=== PATIENT | female | born 1940 | race American Indian/Alaskan Native ===

== ENCOUNTER 2021-05-24 07:27 | Inpatient (IN) | payer MEDICARE, OTHER ==
[2021-05-24] MEDS ORDERED: Ondansetron 4 MG Tab.DIS PO PRN (08:06)
[2021-05-24] MEDS ORDERED: LORazepam 2 MG/ML SDV IVPUSH PRN (08:06)
[2021-05-24] MEDS ORDERED: Magnesium Hydroxide 400 MG/5 ML Susp 30 ML Cup PO PRN (08:06)
[2021-05-24] MEDS ORDERED: Ibuprofen 600 MG Tab PO PRN (08:06)
[2021-05-24] MEDS ORDERED: Ondansetron 4 MG/2 ML SDV IV PRN (08:06)
[2021-05-24] MEDS ORDERED: Norepinephrine 4 MG in Dextrose 5% in Water 246 ML IV SCH ×2 (08:15)
--- NOTE | 2021-05-24 08:18 | PCM.HP.2 ---
H&P History of Present Illness - General Date of Service: 05/24/21 Admit Problem/Dx: Admission Diagnosis/Problem Admission Diagnosis/Problem Pyelonephritis Source of Information: Patient, Provider History Limitations: Reports: Other (hard of hearing ) - History of Present Illness Initial Comments - Free Text/Narative: CC: I didn't feel so good HPI: Alexandrea initially presented to the [place] emergency room by ambulance with progressive weakness, lethargy and nausea. Symptoms started about 3 days ago and have been slowly progressive. Appetite and oral intake have been poor especially the past 24 hours. She has had nausea but no vomiting. She does not currently report any abdominal pain but did report abdominal pain to the emergency room physician in [place]. She described a right upper quadrant pain to him but when I asked her about pain she says no. She has not noticed a change in bowel or bladder habits other than possibly some urgency to go. She has not had any dysuria. She has not noticed any blood in her urine. She thinks maybe she has had subjective fevers and chills. She feels a little bit short of breath. No chest pain. No skin rashes or sick contacts. She did have both of her Covid vaccinations but cannot remember when. Work-up in the emergency room and to treat Sulaiman suggested right-sided pyelonephritis with initially sepsis which later progressed to septic shock. She is currently requiring norepinephrine for vasopressor support. She received broad-spectrum antibiotics and cultures were obtained there. She was transf erred here because no beds were available and to treat legs. - Related Data Allergies/Adverse Reactions: Allergies Allergy/AdvReac Type Severity Reaction Status Date / Time No Known Allergies Allergy Verified 05/24/21 07:59 Home Medications: Home Meds Aspirin [Halfprin] 81 mg PO DAILY 05/24/21 [History] Calcium Citrate/Vitamin D3 [Calcium Citrate - Vit D3 Tab] 1 tab PO BID 05/24/21 [History] Ibuprofen 400 mg PO DAILY 05/24/21 [History] Insuln Asp Prot/Insulin Aspart [NovoLOG Mix 70-30] 50 units SQ BIDAC 05/24/21 [History] Losartan [Cozaar] 100 mg PO DAILY 05/24/21 [History] Multivitamin 1 each PO DAILY 05/24/21 [History] Omeprazole 20 mg PO DAILY 05/24/21 [History] Sertraline [Zoloft] 100 mg PO DAILY 05/24/21 [History] Simvastatin 20 mg PO BEDTIME 05/24/21 [History] amLODIPine Besylate [Amlodipine Besylate] 10 mg PO DAILY 05/24/21 [History] hydroCHLOROthiazide [Hydrochlorothiazide] 12.5 mg PO DAILY 05/24/21 [History] metFORMIN [Glucophage] 1,000 mg PO BIDMEALS 05/24/21 [History] Past Medical History Cardiovascular History: Reports: High Cholesterol, Hypertension Gastrointestinal History: Reports: Gastritis Genitourinary History: Reports: Pyelonephritis, Renal Calculus [employer]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: Psychiatric History: Reports: Anxiety, Depression Endocrine/Metabolic History: Reports: Diabetes, Type II - Infectious Disease History Infectious Disease History: Reports: Chicken Pox - Past Surgical History HEENT Surgical History: Reports: Cataract Surgery Female Surgical History: Reports: Hysterectomy Other Neurological Surgeries/Procedures: bells palsy Social & Family History - Family History Endocrine/Metabolic: Denies: Diabetes, type II - Tobacco Use Tobacco Use Status *Q: Never Tobacco User - Alcohol Use Alcohol Use History: No - Recreational Drug Use Recreational Drug Use: No H&P Review of Systems - Review of Systems: Review Of Systems: See Below Free Text/Narrative: A complete 12 point review of systems was obtained. Pertinent positives and negatives are noted in the history of present illness. All other systems were reviewed and were negative except as noted. Exam - Exam Exam: See Below - Vital Signs Vital Signs: Last Vital Signs Temp 37.6 C 05/24/21 08:00 Pulse 102 H 05/24/21 08:00 Resp 23 H 05/24/21 08:00 BP 105/48 L 05/24/21 08:00 Pulse Ox 98 05/24/21 08:00 Weight: 73 kg - Exam Quality Assessment: Supplemental Oxygen General: Alert, Cooperative. No: Mild Distress HEENT: Conjunctiva Clear. No: Mucosa Moist & [place] (dry), Scleral Icterus Neck: Supple, Trachea Midline. No: Lymphadenopathy Lungs: Normal Respiratory Effort, Crackles (Few both bases) Cardiovascular: Regular Rate, Regular Rhythm. No: Systolic Murmur GI/Abdominal Exam: Normal Bowel Sounds, Soft, Non-Tender, Distended Extremities: No Pedal Edema. No: Joint Swelling, Increased Warmth Skin: Warm, Dry. No: Rash, Ecchymosis Neuro Extensive - Mental Status: Alert, Nl Response to Commands Neuro Extensive - Motor, Sensory, Reflexes: No: Dysarthria, Abnormal Motor, Tremor Psychiatric: Alert, Normal Affect - Patient Data Lab Results Last 24 hrs: White blood cell count 22, hemoglobin 8.4 with an MCV of 71 potassium 4.4, creatinine 1.7 with a GFR of 29 CRP was 20.5 procalcitonin elevated at 3.8 Lactic acid 2 Urinalysis strongly suggestive of infection with many bacteria, large leukocyte esterase and more than 100 white blood cells per high-power field. Covid testing was negative Imaging Impressions Last 24 hrs: Head CT-radiology report was unremarkable Right upper quadrant ultrasound-radiology report unremarkable CT of the abdomen and pelvis-radiology report noted mild right-sided hydronephrosis and a possible 2 mm stone in the ureter as well as evidence for pyelonephritis around the right kidney with stranding. No other acute findings. #1 Interpretation EKG Date: 05/23/21 Rhythm: NSR Rate (Beats/Min): 94 [place]: Normal P-Wave: Present QRS: Normal ST-T: Normal QT: Normal LA/PQ Interval: Normal Comparison: NA - No Prior EKG EKG Interpretation Comments: This EKG image was personally reviewed at the time of admission Sepsis Event Note - Evaluation Current Stage of Sepsis: Septic Shock Possible Source of Sepsis: Genitourinary - Focused Exam Sepsis Event Note Statement: Focused Sepsis Exam Completed Vital Signs: Vital Signs Temp Pulse Resp BP Pulse Ox 05/24/21 08:00 37.6 C 102 H 23 H 105/48 L 98 05/24/21 07:42 38.2 C H 104 H 22 H 101/44 L 96 Respiratory Effort Without Exertion: Other (see below) (Normal) Heart Sounds: Other (see below) (normal) Capillary Refill, Detail: Less than/Equal to (</=) 2 Seconds Pulse Description: 2+ Normal Peripheral Pulse Location: Dorsalis Pedis Skin Exam (Focused Sepsis): Normal Turgor Date Exam was Performed: 05/24/21 Time Exam was Performed: 08:00 *Q Meaningful Use (ADM) - VTE Risk Assess *Q Each Risk Factor Represents 1 Point: Obesity ( BMI > 25 kg/m2), Sepsis Total Score 1 Point Risk Factors: 2 Each Risk Factor Represents 2 Points: None Total Score 2 Point Risk Factors: 0 Each Risk Factor Represents 3 Points: Age 75 Years or Greater Total Score 3 Point Risk Factors: 3 Each Risk Factor Represents 5 Points: None Total Score 5 Point Risk Factors: 0 Venous Thromboembolism Risk Factor Score *Q: 5 - Problem List (1) Pyelonephritis of right kidney SNOMED Code(s): 22043660 ICD Code: N12 - TUBULO-INTERSTITIAL NEPHRITIS, NOT SPCF ACUTE OR CHRONIC Status: Acute Current Visit: Yes (2) Septic shock SNOMED Code(s): 72016820 ICD Code: A41.9 - SEPSIS, UNSPECIFIED ORGANISM; R65.21 - SEVERE SEPSIS WITH SEPTIC SHOCK Status: Acute Current Visit: Yes (3) Acute kidney injury SNOMED Code(s): 71068286, 58853293 ICD Code: N17.9 - ACUTE KIDNEY FAILURE, UNSPECIFIED Status: Acute Current Visit: Yes (4) Diabetes mellitus type 2 in obese SNOMED Code(s): 22083021 ICD Code: E11.69 - TYPE 2 DIABETES MELLITUS WITH OTHER SPECIFIED COMPLI CATION; E66.9 - OBESITY, UNSPECIFIED Status: Chronic Current Visit: Yes (5) Essential hypertension SNOMED Code(s): 64377199 ICD Code: I10 - ESSENTIAL (PRIMARY) HYPERTENSION Status: Chronic Current Visit: Yes Problem List Initiated/Reviewed/Updated: Yes Orders Last 24hrs: Active Orders 24 hr Category Date Time Status Patient Status [ADT] Routine ADT 05/24/21 08:06 Ordered Antiembolic Devices [RC] .Routine Care 05/24/21 08:06 Ordered Blood Glucose Check, Bedside [RC] WITHMEALSANDBED Care 05/24/21 08:06 Ordered Cardiac Monitoring [RC] CONTINUOUS Care 05/24/21 08:07 Ordered Communication Order [RC] PRN Care 05/24/21 08:06 Ordered Communication Order [RC] PRN Care 05/24/21 08:06 Ordered Diabetes Education [RC] Click to Edit Care 05/24/21 08:06 Ordered Intake and Output [RC] QSHIFT Care 05/24/21 08:06 Ordered Notify Provider Vital Signs [RC] ASDIRECTED Care 05/24/21 08:06 Ordered Notify Provider [RC] PRN Care 05/24/21 08:09 Ordered Oxygen Therapy [RC] PRN Care 05/24/21 08:06 Ordered Up With Assistance [RC] ASDIRECTED Care 05/24/21 08:06 Ordered VTE/DVT Education [RC] Per Unit Routine Care 05/24/21 08:06 Ordered Vital Signs [RC] Q1HR Care 05/24/21 08:06 Ordered Consistent Carbohydrate Diet [DIET] Diet 05/24/21 Breakfast Ordered BASIC METABOLIC PANEL,BMP [CHEM] AM Lab 05/25/21 05:11 Ordered CBC W/O DIFF,HEMOGRAM [HEME] AM Lab 05/25/21 05:11 Ordered Acetaminophen [TylenoL] Med 05/24/21 08:06 Ordered 650 mg PO Q4H PRN Aspirin [Halfprin] Med 05/24/21 09:00 Ordered 81 mg PO DAILY Docusate Sodium/Sennosides [Senna Plus] Med 05/24/21 08:06 Ordered 1 tab PO BID PRN Ibuprofen [Motrin] Med 05/24/21 08:06 Ordered 600 mg PO Q8H PRN Insulin Lispro [HumaLOG] Med 05/24/21 11:00 Ordered See Protocol SUBCUT QIDACANDBED Insuln Asp Prot/Insulin Aspart [NovoLOG Mix 70-30] Med 05/24/21 08:30 Ordered 25 units SQ BIDAC LORazepam [Ativan] Med 05/24/21 08:06 Ordered 0.5 mg IVPUSH Q4H PRN Lactobacillus Rhamnosus GG [Culturelle] Med 05/24/21 09:00 Ordered 1 cap PO BID Levofloxacin/Dextrose 5%-Water [Levaquin in D5W 500 MG/ Med 05/25/21 23:00 Ordered 100 ML] 500 mg Premix Bag 1 bag IV Q48H Magnesium Hydroxide [Milk of Magnesia] Med 05/24/21 08:06 Ordered 30 ml PO Q12H PRN Melatonin Med 05/24/21 21:00 Ordered 9 mg PO BEDTIME Norepinephrine 4 MG in D5W @ 2 MCG/MIN(250ml) Med 05/24/21 08:15 Ordered Norepinephrine [Levophed] 4 mg Dextrose 5% in Water 246 ml IV TITRATE Ondansetron [Zofran ODT] Med 05/24/21 08:06 Ordered 4 mg PO Q6H PRN Ondansetron [Zofran] Med 05/24/21 08:06 Ordered 4 mg IV Q6H PRN Pantoprazole [ProTONIX] Med 05/25/21 07:30 Ordered 40 mg PO ACBREAKFAST Sertraline [Zoloft] Med 05/24/21 09:00 Ordered 100 mg PO DAILY Simvastatin [Simvastatin] Med 05/24/21 21:00 Ordered 20 mg PO BEDTIME Sodium Chloride 0.9% [Normal Saline] 1,000 ml Med 05/24/21 08:15 Ordered IV ASDIRECTED cefTAZidime Pentahydrate [Fortaz] 1 gm Med 05/24/21 08:15 Ordered Sodium Chloride 0.9% [Normal Saline] 50 ml IV Q12H Sequential Compression Device [OM.PC] Routine Oth 05/24/21 08:06 Ordered Resuscitation Status Routine Resus Stat 05/24/21 08:06 Ordered Assessment/Plan Comment:: ASSESSMENT AND PLAN - Right-sided pyelonephritis-complicated by septic shock. CT scan suggested possible small stone in the right ureter with mild hydronephrosis though this was not definite. She is requiring vasopressor support. She did develop mild hypoxia with aggressive IV fluid supplementation but respiratory status currently stable. Cultures were obtained and she did receive broad-spectrum antibiotics at the outside hospital. -Antibiotic coverage with ceftazidime and levofloxacin -Follow-up cultures -Continue norepinephrine, wean as able -Gentle IV fluids, patient may need a dose of furosemide later in the day but fluids are necessary with the urinary infection and possible kidney stone -cardiac monitoring Acute kidney injury-creatinine 1.7 with a baseline of around 1. Likely related to the sepsis and should improve with IV fluids. -Fluids as above with repeat labs in the morning Type 2 diabetes mellitus, [id number] recently has been poor so we are planning to undergo's insulin until we see how she does with food. -NovoLog 70/30 25 units twice daily with meals, Increase as indicated if sugars rise -Sliding scale insulin Essential hypertension-currently requiring vasopressor support so antihypertensive medications will be held. Maintenance issues - -DVT prophylaxis-SCDs -GI prophylaxis-PPI -Nutrition-consistent carbohydrate -Venegas catheter-placed for strict intake and output monitoring in a critical patient CODE STATUS -full code Admission justification -this patient will be admitted for inpatient services and is medically appropriate meeting medical necessity for inpatient admission as outlined in my documentation. I reasonably expect the patient will require inpatient services that span a period time over 2 midnights. I reasonably expect this patient to be discharged or transferred within 96 hours after admission to the [facility]. Disposition -I anticipate discharge home after the hospital stay Primary care physician - Tamela Maynard M.D. - Mortality Measure Prognosis:: Good
[2021-05-24] MEDS: Sodium Chloride 0.9% 1,000 ML IV SCH ×2 (08:22→18:11)
[2021-05-24] MEDS: Insulin Lispro Protamine/Lispro 75-25 100 Units/ML 10 ML Vial SUBCUT SCH ×2 (08:37→17:31)
[2021-05-24] MEDS: Sertraline 50 MG Tab PO SCH (09:09)
[2021-05-24] MEDS: Lactobacillus Rhamnosus GG (Probiotic) Cap PO SCH ×2 (09:09→21:49)
[2021-05-24] MEDS: Pantoprazole 40 MG Tab.CR PO SCH (09:09)
[2021-05-24] MEDS: Aspirin 81 MG Tab.EC PO SCH (09:09)
[2021-05-24] MEDS: Insulin Lispro 100 Unit/ML 3 ML KwikPen SUBCUT SCH ×3 (11:20→21:47)
[2021-05-24] MEDS: Acetaminophen 325 MG Tab PO PRN (13:30)
[2021-05-24] MEDS: atorvaSTATin 10 MG Tab PO SCH (21:49)
[2021-05-24] MEDS: Melatonin 3 MG Tab PO SCH (21:49)
[2021-05-25] MEDS: Acetaminophen 325 MG Tab PO PRN ×4 (00:24→20:56)
[2021-05-25] MEDS: Insulin Lispro 100 Unit/ML 3 ML KwikPen SUBCUT SCH ×4 (07:53→20:59)
[2021-05-25] MEDS: Pantoprazole 40 MG Tab.CR PO SCH (07:53)
[2021-05-25] MEDS: Insulin Lispro Protamine/Lispro 75-25 100 Units/ML 10 ML Vial SUBCUT SCH ×3 (07:55→16:41)
[2021-05-25] MEDS ORDERED: Furosemide 40 MG/4 ML VIAL IVPUSH ONE (08:00)
[2021-05-25] MEDS: Aspirin 81 MG Tab.EC PO SCH (09:21)
[2021-05-25] MEDS: Lactobacillus Rhamnosus GG (Probiotic) Cap PO SCH ×2 (09:21→20:51)
[2021-05-25] MEDS: Sertraline 50 MG Tab PO SCH (09:21)
--- NOTE | 2021-05-25 11:33 | PCM.PN ---
- General Info Date of Service: 05/25/21 Subjective Update: There were no acute events overnight. Patient was weaned off of her norepinephrine infusion fairly quickly yesterday. Blood pressures have been good since that time. Blood sugars have been fairly well controlled though the sugar this morning was on the lower side of normal. She is feeling better with less shortness of breath and more strength and more energy. She does continue to require supplemental oxygen at about 3 L/min. She did receive a dose of Lasix this morning and has had a good response so far. Cultures from [place] are growing E. coli with final identification and sensitivities pending. Functional Status: Reports: Pain Controlled, Tolerating Diet - Review of Systems General: Reports: Fever, Weakness Pulmonary: Reports: Shortness of Breath (mild) Gastrointestinal: Denies: Abdominal Pain - Patient Data Vitals - Most Recent: Last Vital Signs Temp 37.3 C 05/25/21 11:22 Pulse 92 05/25/21 11:22 Resp 16 05/25/21 11:22 BP 123/44 L 05/25/21 11:22 Pulse Ox 94 L 05/25/21 11:22 Weight - Most Recent: 73 kg I&O - Last 24 Hours: Intake & Output 05/24/21 05/25/21 05/25/21 22:59 06:59 14:59 Intake Total 262 1285 Output Total 1050 650 550 Balance -788 635 -550 Lab Results Last 24 Hours: Laboratory Results - last 24 hr 05/24/21 05/24/21 05/25/21 Range/Units 16:51 21:00 05:54 WBC 15.0 H (4.5-11.0) K/uL RBC 3.57 (3.30-5.50) M/uL Hgb 7.5 L (12.0-15.0) g/dL Hct 25.0 L (36.0-48.0) % MCV 70 L (80-98) fL MCH 21 L (27-31) pg MCHC 30 L (32-36) % Plt Count 256 (150-400) K/uL Sodium (140-148) mmol/L Potassium (3.6-5.2) mmol/L Chloride (100-108) mmol/L Carbon Dioxide (21-32) mmol/L Anion Gap (5.0-14.0) mmol/L BUN (7-18) mg/dL Creatinine (0.6-1.0) mg/dL Est Cr Clr Drug Dosing mL/min Estimated GFR (MDRD) (>60) Glucose (74-106) mg/dL POC Glucose 197 H 93 (74-106) mg/dL Calcium (8.5-10.1) mg/dL 05/25/21 05/25/21 05/25/21 Range/Units 05:54 07:29 11:26 WBC (4.5-11.0) K/uL RBC (3.30-5.50) M/uL Hgb (12.0-15.0) g/dL Hct (36.0-48.0) % MCV (80-98) fL MCH (27-31) pg MCHC (32-36) % Plt Count (150-400) K/uL Sodium 135 L (140-148) mmol/L Potassium 3.8 (3.6-5.2) mmol/L Chloride 102 (100-108) mmol/L Carbon Dioxide 22 (21-32) mmol/L Anion Gap 14.8 H (5.0-14.0) mmol/L BUN 34 H (7-18) mg/dL Creatinine 1.6 H (0.6-1.0) mg/dL Est Cr Clr Drug Dosing 20.48 mL/min Estimated GFR (MDRD) 31 L (>60) Glucose 89 (74-106) mg/dL POC Glucose 79 140 H (74-106) mg/dL Calcium 8.2 L (8.5-10.1) mg/dL Med Orders - Current: Current Medications Acetaminophen (Acetaminophen 325 Mg Tab) 650 mg PO Q4H PRN PRN Reason: Pain (Mild 1-3)/fever Last Admin: 05/25/21 09:24 Dose: 650 mg Documented by: Aspirin (Aspirin 81 Mg Tab.Ec) 81 mg PO DAILY [facility] Last Admin: 05/25/21 09:21 Dose: 81 mg Documented by: Atorvastatin Calcium (Atorvastatin 10 Mg Tab) 10 mg PO BEDTIME [facility] Last Admin: 05/24/21 21:49 Dose: 10 mg Documented by: Ceftazidime 1 gm/ Sodium (Chloride) 50 mls @ 100 mls/hr IV Q12H [facility] Last Admin: 05/25/21 09:18 Dose: 100 mls/hr Documented by: Ibuprofen (Ibuprofen 600 Mg Tab) 600 mg PO Q8H PRN PRN Reason: Fever Insulin Human Lispro (Insulin Lispro 100 Unit/Ml 3 Ml Kwikpen) 0 unit SUBCUT QIDACANDBED [facility]; Protocol Last Admin: 05/25/21 07:53 Dose: Not Given Documented by: Insulin Lispro Protam/Lispro Human (Insulin Lispro Protamine/Lispro 75-25 100 Units/Ml 10 Ml Vial) 15 unit SUBCUT BIDAC [facility] Last Admin: 05/25/21 11:01 Dose: 15 unit Documented by: Lactobacillus Rhamnosus (Lactobacillus Rhamnosus Gg (Probiotic) Cap) 1 cap PO BID [facility] Last Admin: 05/25/21 09:21 Dose: 1 cap Documented by: Lorazepam (Lorazepam 2 Mg/Ml Sdv) 0.5 mg IVPUSH Q4H PRN PRN Reason: Nausea/Vomiting Magnesium Hydroxide (Magnesium Hydroxide 400 Mg/5 Ml Susp 30 Ml Cup) 30 ml PO Q12H PRN PRN Reason: Constipation Melatonin (Melatonin 3 Mg Tab) 9 mg PO BEDTIME [facility] Last Admin: 05/24/21 21:49 Dose: 9 mg Documented by: Ondansetron HCl (Ondansetron 4 Mg Tab.Dis) 4 mg PO Q6H PRN PRN Reason: Nausea able to take PO Last Admin: 05/25/21 00:57 Dose: 4 mg Documented by: Ondansetron HCl (Ondansetron 4 Mg/2 Ml Sdv) 4 mg IV Q6H PRN PRN Reason: Nausea/Vomiting Pantoprazole Sodium (Pantoprazole 40 Mg Tab.Cr) 40 mg PO ACBREAKFAST [facility] Last Admin: 05/25/21 07:53 Dose: 40 mg Documented by: Senna/Docusate Sodium (Docusate Sodium/Sennosides 50-8.6 Mg Tab) 1 tab PO BID PRN PRN Reason: Constipation Sertraline HCl (Sertraline 50 Mg Tab) 100 mg PO DAILY [facility] Last Admin: 05/25/21 09:21 Dose: 100 mg Documented by: Discontinued Medications Furosemide (Furosemide 40 Mg/4 Ml Vial) 20 mg IVPUSH ONETIME ONE Stop: 05/25/21 08:01 Last Admin: 05/25/21 07:52 Dose: 20 mg Documented by: Sodium Chloride (Normal Saline) 1,000 mls @ 100 mls/hr IV ASDIRECTED [facility] Last Admin: 05/24/21 18:11 Dose: 100 mls/hr Documented by: Levofloxacin/Dextrose 500 mg/ (Premix) 100 mls @ 100 mls/hr IV Q48H [facility] Norepinephrine Bitartrate 4 mg (/ Dextrose/Water) 250 mls @ 7.5 mls/hr IV TITRATE [facility]; Protocol Insulin Lispro Protam/Lispro Human (Insulin Lispro Protamine/Lispro 75-25 100 Units/Ml 10 Ml Vial) 25 unit SUBCUT BIDAC [facility] Last Admin: 05/25/21 07:55 Dose: Not Given Documented by: - Exam Quality Assessment: Supplemental Oxygen General: Alert, Oriented, Cooperative, No Acute Distress Lungs: Normal Respiratory Effort, Crackles (both bases R>L) Cardiovascular: Regular Rate, Regular Rhythm GI/Abdominal Exam: Soft, No Distention Extremities: No Pedal Edema. No: Increased Warmth Skin: Warm, Dry Psy/Mental Status: Alert, Normal Affect - Patient Data Lab Results Last 24 hrs: Laboratory Results - last 24 hr 05/24/21 05/24/21 05/25/21 Range/Units 16:51 21:00 05:54 WBC 15.0 H (4.5-11.0) K/uL RBC 3.57 (3.30-5.50) M/uL Hgb 7.5 L (12.0-15.0) g/dL Hct 25.0 L (36.0-48.0) % MCV 70 L (80-98) fL MCH 21 L (27-31) pg MCHC 30 L (32-36) % Plt Count 256 (150-400) K/uL Sodium (140-148) mmol/L Potassium (3.6-5.2) mmol/L Chloride (100-108) mmol/L Carbon Dioxide (21-32) mmol/L Anion Gap (5.0-14.0) mmol/L BUN (7-18) mg/dL Creatinine (0.6-1.0) mg/dL Est Cr Clr Drug Dosing mL/min Estimated GFR (MDRD) (>60) Glucose (74-106) mg/dL POC Glucose 197 H 93 (74-106) mg/dL Calcium (8.5-10.1) mg/dL 05/25/21 05/25/21 05/25/21 Range/Units 05:54 07:29 11:26 WBC (4.5-11.0) K/uL RBC (3.30-5.50) M/uL Hgb (12.0-15.0) g/dL Hct (36.0-48.0) % MCV (80-98) fL MCH (27-31) pg MCHC (32-36) % Plt Count (150-400) K/uL Sodium 135 L (140-148) mmol/L Potassium 3.8 (3.6-5.2) mmol/L Chloride 102 (100-108) mmol/L Carbon Dioxide 22 (21-32) mmol/L Anion Gap 14.8 H (5.0-14.0) mmol/L BUN 34 H (7-18) mg/dL Creatinine 1.6 H (0.6-1.0) mg/dL Est Cr Clr Drug Dosing 20.48 mL/min Estimated GFR (MDRD) 31 L (>60) Glucose 89 (74-106) mg/dL POC Glucose 79 140 H (74-106) mg/dL Calcium 8.2 L (8.5-10.1) mg/dL Result Diagrams: 05/25/21 05:54 05/25/21 05:54 Sepsis Event Note - Evaluation Sepsis Screening Result: Possible Sepsis Risk - Focused Exam Vital Signs: Vital Signs Temp Temp Pulse Resp BP Pulse Ox Pulse Ox 05/25/21 11:22 37.3 C 92 16 123/44 L 94 L 05/25/21 08:08 36.2 C 86 16 128/46 L 95 05/25/21 08:06 96 05/25/21 04:00 37.3 C 75 16 125/49 L 96 05/25/21 01:34 94 L 05/25/21 00:54 38.2 C H 05/25/21 00:24 38.7 C H 05/25/21 00:14 38.7 C H 106 H 18 126/54 L 90 L - Problem List & Annotations (1) Pyelonephritis of right kidney SNOMED Code(s): 52229349 Code(s): N12 - TUBULO-INTERSTITIAL NEPHRITIS, NOT SPCF ACUTE OR CHRONIC Status: Acute Current Visit: Yes (2) Septic shock SNOMED Code(s): 49035438 Code(s): A41.9 - SEPSIS, UNSPECIFIED ORGANISM; R65.21 - SEVERE SEPSIS WITH SEPTIC SHOCK Status: Acute Current Visit: Yes (3) Acute kidney injury SNOMED Code(s): 64414087, 96085101 Code(s): N17.9 - ACUTE KIDNEY FAILURE, UNSPECIFIED Status: Acute Current Visit: Yes (4) Diabetes mellitus type 2 in obese SNOMED Code(s): 15099121 Code(s): E11.69 - TYPE 2 DIABETES MELLITUS WITH OTHER SPECIFIED COMPLICATION; E66.9 - OBESITY, UNSPECIFIED Status: Chronic Current Visit: Yes (5) Essential hypertension SNOMED Code(s): 85698329 Code(s): I10 - ESSENTIAL (PRIMARY) HYPERTENSION Status: Chronic Current Visit: Yes - Problem List Review Problem List Initiated/Reviewed/Updated: Yes - My Orders Last 24 Hours: My Active Orders 05/24/21 11:00 Insulin Lispro [HumaLOG] See Protocol SUBCUT QIDACANDBED 05/24/21 14:01 Transfer Patient (Change bed) [ADT] Routine Vital Signs [RC] Q4H 05/24/21 21:00 Melatonin 9 mg PO BEDTIME atorvaSTATin [Lipitor] 10 mg PO BEDTIME 05/25/21 03:18 Convert IV to Saline Lock [OM.PC] Routine 05/25/21 03:41 Urinary Catheter Assessment [RC] Q12HR 05/25/21 09:30 Insulin Lispro Prot/Lispro [HumaLOG Mix 75-25] 15 unit SUBCUT BIDAC 05/25/21 11:30 GLUCOSE POC LAB TO COLLECT JPM [POC] QIDACANDBED 05/25/21 13:00 DC Venegas Catheter [Urinary Catheter Removal] [RC] PER UNIT ROUTINE 05/25/21 16:30 GLUCOSE POC LAB TO COLLECT JPM [POC] QIDACANDBED 05/25/21 21:00 GLUCOSE POC LAB TO COLLECT JPM [POC] QIDACANDBED 05/26/21 05:00 BASIC METABOLIC PANEL,BMP [CHEM] Timed CBC W/O DIFF,HEMOGRAM [HEME] Timed (1) 05/26/21 07:30 GLUCOSE POC LAB TO COLLECT JPM [POC] QIDACANDBED 05/26/21 11:30 GLUCOSE POC LAB TO COLLECT JPM [POC] QIDACANDBED 05/26/21 16:30 GLUCOSE POC LAB TO COLLECT JPM [POC] QIDACANDBED 05/26/21 21:00 GLUCOSE POC LAB TO COLLECT JPM [POC] QIDACANDBED 05/27/21 07:30 GLUCOSE POC LAB TO COLLECT JPM [POC] QIDACANDBED 05/27/21 11:30 GLUCOSE POC LAB TO COLLECT JPM [POC] QIDACANDBED 05/27/21 16:30 GLUCOSE POC LAB TO COLLECT JPM [POC] QIDACANDBED 05/27/21 21:00 GLUCOSE POC LAB TO COLLECT JPM [POC] QIDACANDBED 05/28/21 07:30 GLUCOSE POC LAB TO COLLECT JPM [POC] QIDACANDBED 05/28/21 11:30 GLUCOSE POC LAB TO COLLECT JPM [POC] QIDACANDBED 05/28/21 16:30 GLUCOSE POC LAB TO COLLECT JPM [POC] QIDACANDBED 05/28/21 21:00 GLUCOSE POC LAB TO COLLECT JPM [POC] QIDACANDBED 05/29/21 07:30 GLUCOSE POC LAB TO COLLECT JPM [POC] QIDACANDBED 05/29/21 11:30 GLUCOSE POC LAB TO COLLECT JPM [POC] QIDACANDBED 05/29/21 16:30 GLUCOSE POC LAB TO COLLECT JPM [POC] QIDACANDBED 05/29/21 21:00 GLUCOSE POC LAB TO COLLECT JPM [POC] QIDACANDBED 05/30/21 07:30 GLUCOSE POC LAB TO COLLECT JPM [POC] QIDACANDBED 05/30/21 11:30 GLUCOSE POC LAB TO COLLECT JPM [POC] QIDACANDBED 05/30/21 16:30 GLUCOSE POC LAB TO COLLECT JPM [POC] QIDACANDBED 05/30/21 21:00 GLUCOSE POC LAB TO COLLECT JPM [POC] QIDACANDBED - Plan Plan:: ASSESSMENT AND PLAN - Right-sided pyelonephritis-complicated by septic shock (resolved). No longer requiring vasopressor support. Cultures growing E. coli with sensitivities pending. Clinically improving but did have a fever last night. -Antibiotic coverage with ceftazidime and levofloxacin -Follow-up cultures -Saline lock IV -Symptomatic management of pain and/or nausea -cardiac monitoring Acute kidney injury-creatinine slightly better since admission. -repeat labs in the morning Type 2 diabetes mellitus, [id number] recently has been poor so we are planning to underdose insulin until we see how she does with food. -NovoLog 70/30 15 units twice daily with meals, Increase as indicated if sugars rise -Sliding scale insulin Essential hypertension-blood pressures in the normal range so we will continue to hold her antihypertensives for now Maintenance issues - -DVT prophylaxis-SCDs -GI prophylaxis-PPI -Nutrition-consistent carbohydrate -Venegas catheter-will be removed today Disposition -I anticipate discharge home after the hospital stay Primary care physician - Tamela Maynard M.D.
[2021-05-25] MEDS: atorvaSTATin 10 MG Tab PO SCH (20:52)
[2021-05-25] MEDS: Melatonin 3 MG Tab PO SCH (20:52)
[2021-05-25] MEDS ORDERED: Levofloxacin/Dextrose 5%-Water 500 MG in Premix Bag 1 BAG IV SCH (23:00)
[2021-05-26] MEDS: Acetaminophen 325 MG Tab PO PRN ×2 (04:53→13:57)
[2021-05-26] MEDS ORDERED: Potassium Chloride 20 MEQ Tab.ER PO ONE (08:30)
[2021-05-26] MEDS: Insulin Lispro Protamine/Lispro 75-25 100 Units/ML 10 ML Vial SUBCUT SCH ×2 (09:28→18:00)
[2021-05-26] MEDS: Pantoprazole 40 MG Tab.CR PO SCH (09:28)
[2021-05-26] MEDS: Lactobacillus Rhamnosus GG (Probiotic) Cap PO SCH ×2 (09:29→21:33)
[2021-05-26] MEDS: Insulin Lispro 100 Unit/ML 3 ML KwikPen SUBCUT SCH ×4 (09:29→21:31)
[2021-05-26] MEDS: Sertraline 50 MG Tab PO SCH (09:30)
[2021-05-26] MEDS: Aspirin 81 MG Tab.EC PO SCH (09:30)
--- NOTE | 2021-05-26 13:25 | PCM.PN ---
- General Info Date of Service: 05/26/21 Subjective Update: There were no acute events overnight. Patient did have a fever to 101.6 this morning. She reports a mild cough with some clear sputum. She reports mild periumbilical abdominal pain but no nausea or vomiting. White count is better today. Blood sugars have been well controlled. Still requiring supplemental oxygen but less so than yesterday. She does desaturate into the 70s without oxygen. Urine and blood cultures from [place] growing pansensitive E. coli. Functional Status: Reports: Pain Controlled, Tolerating Diet - Review of Systems General: Reports: Weakness Pulmonary: Reports: Shortness of Breath, Cough Gastrointestinal: Reports: Abdominal Pain - Patient Data Vitals - Most Recent: Last Vital Signs Temp 36.1 C 05/26/21 10:00 Pulse 80 05/26/21 10:00 Resp 18 05/26/21 10:00 BP 124/52 L 05/26/21 10:00 Pulse Ox 97 05/26/21 13:00 Weight - Most Recent: 73 kg I&O - Last 24 Hours: Intake & Output 05/25/21 05/26/21 05/26/21 22:59 06:59 14:59 Intake Total 550 500 Balance 550 500 Lab Results Last 24 Hours: Laboratory Results - last 24 hr 05/25/21 05/25/21 05/26/21 Range/Units 16:33 20:57 05:55 WBC 11.4 H (4.5-11.0) K/uL RBC 3.73 (3.30-5.50) M/uL Hgb 7.8 L (12.0-15.0) g/dL Hct 26.0 L (36.0-48.0) % MCV 70 L (80-98) fL MCH 21 L (27-31) pg MCHC 30 L (32-36) % Plt Count 244 (150-400) K/uL Sodium (140-148) mmol/L Potassium (3.6-5.2) mmol/L Chloride (100-108) mmol/L Carbon Dioxide (21-32) mmol/L Anion Gap (5.0-14.0) mmol/L BUN (7-18) mg/dL Creatinine (0.6-1.0) mg/dL Est Cr Clr Drug Dosing mL/min Estimated GFR (MDRD) (>60) Glucose (74-106) mg/dL POC Glucose 101 115 H (74-106) mg/dL Calcium (8.5-10.1) mg/dL 05/26/21 05/26/21 05/26/21 Range/Units 05:55 07:27 12:25 WBC (4.5-11.0) K/uL RBC (3.30-5.50) M/uL Hgb (12.0-15.0) g/dL Hct (36.0-48.0) % MCV (80-98) fL MCH (27-31) pg MCHC (32-36) % Plt Count (150-400) K/uL Sodium 134 L (140-148) mmol/L Potassium 3.5 L (3.6-5.2) mmol/L Chloride 99 L (100-108) mmol/L Carbon Dioxide 24 (21-32) mmol/L Anion Gap 14.5 H (5.0-14.0) mmol/L BUN 26 H (7-18) mg/dL Creatinine 1.2 H (0.6-1.0) mg/dL Est Cr Clr Drug Dosing 27.30 mL/min Estimated GFR (MDRD) 43 L (>60) Glucose 169 H (74-106) mg/dL POC Glucose 166 H 205 H (74-106) mg/dL Calcium 8.4 L (8.5-10.1) mg/dL Med Orders - Current: Current Medications Acetaminophen (Acetaminophen 325 Mg Tab) 650 mg PO Q4H PRN PRN Reason: Pain (Mild 1-3)/fever Last Admin: 05/26/21 04:53 Dose: 650 mg Documented by: Aspirin (Aspirin 81 Mg Tab.Ec) 81 mg PO DAILY [facility] Last Admin: 05/26/21 09:30 Dose: 81 mg Documented by: Atorvastatin Calcium (Atorvastatin 10 Mg Tab) 10 mg PO BEDTIME [facility] Last Admin: 05/25/21 20:52 Dose: 10 mg Documented by: Ibuprofen (Ibuprofen 600 Mg Tab) 600 mg PO Q8H PRN PRN Reason: Fever Insulin Human Lispro (Insulin Lispro 100 Unit/Ml 3 Ml Kwikpen) 0 unit SUBCUT QIDACANDBED ON [facility]; Protocol Last Admin: 05/26/21 09:29 Dose: 2 units Documented by: Insulin Lispro Protam/Lispro Human (Insulin Lispro Protamine/Lispro 75-25 100 Units/Ml 10 Ml Vial) 15 unit SUBCUT BIDAC [facility] Last Admin: 05/26/21 09:28 Dose: 15 unit Documented by: Lactobacillus Rhamnosus (Lactobacillus Rhamnosus Gg (Probiotic) Cap) 1 cap PO BID [facility] Last Admin: 05/26/21 09:29 Dose: 1 cap Documented by: Lorazepam (Lorazepam 2 Mg/Ml Sdv) 0.5 mg IVPUSH Q4H PRN PRN Reason: Nausea/Vomiting Magnesium Hydroxide (Magnesium Hydroxide 400 Mg/5 Ml Susp 30 Ml Cup) 30 ml PO Q12H PRN PRN Reason: Constipation Melatonin (Melatonin 3 Mg Tab) 9 mg PO BEDTIME [facility] Last Admin: 05/25/21 20:52 Dose: 9 mg Documented by: Ondansetron HCl (Ondansetron 4 Mg Tab.Dis) 4 mg PO Q6H PRN PRN Reason: Nausea able to take PO Last Admin: 05/25/21 00:57 Dose: 4 mg Documented by: Ondansetron HCl (Ondansetron 4 Mg/2 Ml Sdv) 4 mg IV Q6H PRN PRN Reason: Nausea/Vomiting Pantoprazole Sodium (Pantoprazole 40 Mg Tab.Cr) 40 mg PO ACBREAKFAST [facility] Last Admin: 05/26/21 09:28 Dose: 40 mg Documented by: Senna/Docusate Sodium (Docusate Sodium/Sennosides 50-8.6 Mg Tab) 1 tab PO BID PRN PRN Reason: Constipation Sertraline HCl (Sertraline 50 Mg Tab) 100 mg PO DAILY [facility] Last Admin: 05/26/21 09:30 Dose: 100 mg Documented by: Discontinued Medications Furosemide (Furosemide 40 Mg/4 Ml Vial) 20 mg IVPUSH ONETIME ONE Stop: 05/25/21 08:01 Last Admin: 05/25/21 07:52 Dose: 20 mg Documented by: Sodium Chloride (Normal Saline) 1,000 mls @ 100 mls/hr IV ASDIRECTED ON [facility] OF [facility] Last Admin: 05/24/21 18:11 Dose: 100 mls/hr Documented by: Ceftazidime 1 gm/ Sodium (Chloride) 50 mls @ 100 mls/hr IV Q12H [facility] Last Admin: 05/26/21 09:28 Dose: 100 mls/hr Documented by: Levofloxacin/Dextrose 500 mg/ (Premix) 100 mls @ 100 mls/hr IV Q48H [facility] Norepinephrine Bitartrate 4 mg (/ Dextrose/Water) 250 mls @ 7.5 mls/hr IV TITRATE [facility]; Protocol Insulin Lispro Protam/Lispro Human (Insulin Lispro Protamine/Lispro 75-25 100 Units/Ml 10 Ml Vial) 25 unit SUBCUT BIDAC [facility] Last Admin: 05/25/21 07:55 Dose: Not Given Documented by: Potassium Chloride (Potassium Chloride 20 Meq Tab.Er) 40 meq PO ONETIME ONE Stop: 05/26/21 08:31 Last Admin: 05/26/21 09:33 Dose: 40 meq Documented by: - Exam Quality Assessment: Supplemental Oxygen General: Alert, Oriented, Cooperative, No Acute Distress Neck: JVD Lungs: Normal Respiratory Effort, Crackles (few both bases R>L) Cardiovascular: Regular Rate, Regular Rhythm GI/Abdominal Exam: Soft, No Distention Extremities: No Pedal Edema. No: Increased Warmth Skin: Warm, Dry Psy/Mental Status: Alert, Normal Affect - Patient Data Lab Results Last 24 hrs: Laboratory Results - last 24 hr 05/25/21 05/25/21 05/26/21 Range/Units 16:33 20:57 05:55 WBC 11.4 H (4.5-11.0) K/uL RBC 3.73 (3.30-5.50) M/uL Hgb 7.8 L (12.0-15.0) g/dL Hct 26.0 L (36.0-48.0) % MCV 70 L (80-98) fL MCH 21 L (27-31) pg MCHC 30 L (32-36) % Plt Count 244 (150-400) K/uL Sodium (140-148) mmol/L Potassium (3.6-5.2) mmol/L Chloride (100-108) mmol/L Carbon Dioxide (21-32) mmol/L Anion Gap (5.0-14.0) mmol/L BUN (7-18) mg/dL Creatinine (0.6-1.0) mg/dL Est Cr Clr Drug Dosing mL/min Estimated GFR (MDRD) (>60) Glucose (74-106) mg/dL POC Glucose 101 115 H (74-106) mg/dL Calcium (8.5-10.1) mg/dL 05/26/21 05/26/21 05/26/21 Range/Units 05:55 07:27 12:25 WBC (4.5-11.0) K/uL RBC (3.30-5.50) M/uL Hgb (12.0-15.0) g/dL Hct (36.0-48.0) % MCV (80-98) fL MCH (27-31) pg MCHC (32-36) % Plt Count (150-400) K/uL Sodium 134 L (140-148) mmol/L Potassium 3.5 L (3.6-5.2) mmol/L Chloride 99 L (100-108) mmol/L Carbon Dioxide 24 (21-32) mmol/L Anion Gap 14.5 H (5.0-14.0) mmol/L BUN 26 H (7-18) mg/dL Creatinine 1.2 H (0.6-1.0) mg/dL Est Cr Clr Drug Dosing 27.30 mL/min Estimated GFR (MDRD) 43 L (>60) Glucose 169 H (74-106) mg/dL POC Glucose 166 H 205 H (74-106) mg/dL Calcium 8.4 L (8.5-10.1) mg/dL Result Diagrams: 05/26/21 05:55 05/26/21 05:55 Sepsis Event Note - Evaluation Sepsis Screening Result: Possible Sepsis Risk - Focused Exam Vital Signs: Vital Signs Temp Temp Pulse Resp BP Pulse Ox 05/26/21 13:00 97 05/26/21 10:00 36.1 C 80 18 124/52 L 98 05/26/21 07:30 97 05/26/21 07:00 36.2 C 78 18 148/57 H 98 05/26/21 05:23 101.6 C H 05/26/21 04:53 38.7 C H 05/26/21 04:49 38.7 C H 100 18 131/53 L 93 L - Problem List & Annotations (1) Pyelonephritis of right kidney SNOMED Code(s): 71900323 Code(s): N12 - TUBULO-INTERSTITIAL NEPHRITIS, NOT SPCF ACUTE OR CHRONIC Status: Acute Current Visit: Yes (2) Septic shock SNOMED Code(s): 18272727 Code(s): A41.9 - SEPSIS, UNSPECIFIED ORGANISM; R65.21 - SEVERE SEPSIS WITH SEPTIC SHOCK Status: Acute Current Visit: Yes (3) Acute kidney injury SNOMED Code(s): 43295245, 60316724 Code(s): N17.9 - ACUTE KIDNEY FAILURE, UNSPECIFIED Status: Acute Current Visit: Yes (4) Diabetes mellitus type 2 in obese SNOMED Code(s): 80296864 Code(s): E11.69 - TYPE 2 DIABETES MELLITUS WITH OTHER SPECIFIED COMPLICATION; E66.9 - OBESITY, UNSPECIFIED Status: Chronic Current Visit: Yes (5) Essential hypertension SNOMED Code(s): 71276418 Code(s): I10 - ESSENTIAL (PRIMARY) HYPERTENSION Status: Chronic Current Visit: Yes - Problem List Review Problem List Initiated/Reviewed/Updated: Yes - My Orders Last 24 Hours: My Active Orders 05/26/21 13:22 Furosemide [Lasix] 40 mg IVPUSH NOW ONE 05/26/21 16:30 GLUCOSE POC LAB TO COLLECT JPM [POC] QIDACANDBED 05/26/21 21:00 GLUCOSE POC LAB TO COLLECT JPM [POC] QIDACANDBED Potassium Chloride [Klor-Con M20] 40 meq PO BID cefTRIAXone [Rocephin] 1 gm Sodium Chloride 0.9% [Normal Saline] 50 ml IV Q24H 05/27/21 05:00 BASIC METABOLIC PANEL,BMP [CHEM] Timed CBC W/O DIFF,HEMOGRAM [HEME] Timed (1) 05/27/21 07:30 GLUCOSE POC LAB TO COLLECT JPM [POC] QIDACANDBED 05/27/21 11:30 GLUCOSE POC LAB TO COLLECT JPM [POC] QIDACANDBED 05/27/21 16:30 GLUCOSE POC LAB TO COLLECT JPM [POC] QIDACANDBED 05/27/21 21:00 GLUCOSE POC LAB TO COLLECT JPM [POC] QIDACANDBED 05/28/21 07:30 GLUCOSE POC LAB TO COLLECT JPM [POC] QIDACANDBED 05/28/21 11:30 GLUCOSE POC LAB TO COLLECT JPM [POC] QIDACANDBED 05/28/21 16:30 GLUCOSE POC LAB TO COLLECT JPM [POC] QIDACANDBED 09/11/21 21:00 GLUCOSE POC LAB TO COLLECT JPM [POC] QIDACANDBED 05/29/21 07:30 GLUCOSE POC LAB TO COLLECT JPM [POC] QIDACANDBED 05/29/21 11:30 GLUCOSE POC LAB TO COLLECT JPM [POC] QIDACANDBED 05/29/21 16:30 GLUCOSE POC LAB TO COLLECT JPM [POC] QIDACANDBED 05/29/21 21:00 GLUCOSE POC LAB TO COLLECT JPM [POC] QIDACANDBED 05/30/21 07:30 GLUCOSE POC LAB TO COLLECT JPM [POC] QIDACANDBED 05/30/21 11:30 GLUCOSE POC LAB TO COLLECT JPM [POC] QIDACANDBED 05/30/21 16:30 GLUCOSE POC LAB TO COLLECT JPM [POC] QIDACANDBED 05/30/21 21:00 GLUCOSE POC LAB TO COLLECT JPM [POC] QIDACANDBED - Plan Plan:: ASSESSMENT AND PLAN - Right-sided pyelonephritis-complicated by septic shock (resolved). No longer requiring vasopressor support. Cultures growing pansensitive E. coli. Clinically improving but still having fevers. She has mild hypoxia which could be related to volume resuscitation at presentation. -Antibiotic coverage with ceftriaxone while hospitalized, oral antibiotics after discharge -Dose of IV furosemide -Saline lock IV -Symptomatic management of pain and/or nausea Acute kidney injury-creatinine improving and nearly back to baseline. -repeat labs in the morning Type 2 diabetes mellitus, zvafqot-qxalgflya-telrab well controlled with less than usual dose of insulin. -NovoLog 70/30 15 units twice daily with meals, Increase as indicated if sugars rise -Sliding scale insulin Essential hypertension-blood pressures in the normal range so we will continue to hold her antihypertensives for now Maintenance issues - -DVT prophylaxis-SCDs -GI prophylaxis-PPI -Nutrition-consistent carbohydrate Disposition -I anticipate discharge home after the hospital stay, possibly tomorrow if we can get her off the supplemental oxygen Primary care physician - Tamela Maynard M.D.
[2021-05-26] MEDS ORDERED: Furosemide 40 MG/4 ML VIAL IVPUSH ONE (13:30)
[2021-05-26] MEDS ORDERED: cefTRIAXone 1 GM in Sodium Chloride 0.9% 50 ML IV SCH (21:00)
[2021-05-26] MEDS: atorvaSTATin 10 MG Tab PO SCH (21:34)
[2021-05-26] MEDS: Potassium Chloride 20 MEQ Tab.ER PO SCH (21:34)
[2021-05-26] MEDS: Melatonin 3 MG Tab PO SCH (21:35)
[2021-05-27] MEDS: Insulin Lispro 100 Unit/ML 3 ML KwikPen SUBCUT SCH ×2 (08:35→12:55)
[2021-05-27] MEDS: Sertraline 50 MG Tab PO SCH (08:40)
[2021-05-27] MEDS: Potassium Chloride 20 MEQ Tab.ER PO SCH (08:40)
[2021-05-27] MEDS: Lactobacillus Rhamnosus GG (Probiotic) Cap PO SCH (08:40)
[2021-05-27] MEDS: Pantoprazole 40 MG Tab.CR PO SCH (08:40)
[2021-05-27] MEDS: Aspirin 81 MG Tab.EC PO SCH (08:40)
[2021-05-27] MEDS: Insulin Lispro Protamine/Lispro 75-25 100 Units/ML 10 ML Vial SUBCUT SCH (08:41)
[2021-05-27] MEDS ORDERED: Furosemide 40 MG/4 ML VIAL IVPUSH ONE (09:00)
--- NOTE | 2021-05-27 13:17 | PCM.DCSUM1 ---
Discharge Summary - Hospital Course Brief History: 80-year-old female with history of type 2 diabetes mellitus, essential hypertension who presented with weakness and fever. She was sent to our hospital as a direct admission for management of right-sided pyelonephritis with septic shock and acute kidney injury. Diagnosis: Stroke: No - Discharge Data Discharge Date: 05/27/21 Discharge Disposition: Home, W Home Health Agency 06 Condition: Good - Referral to Home Health Date of Face to Face Encounter: 05/27/21 Reason for Homebound Status: weakness due to acute illness/infection Primary Care Physician: PCP None Skilled Need: Nursing and Physical therapy - Discharge Diagnosis/Problem(s) (1) Pyelonephritis of right kidney SNOMED Code(s): 73517937 ICD Code: N12 - TUBULO-INTERSTITIAL NEPHRITIS, NOT SPCF ACUTE OR CHRONIC Status: Acute Current Visit: Yes (2) Septic shock SNOMED Code(s): 53611665 ICD Code: A41.9 - SEPSIS, UNSPECIFIED ORGANISM; R65.21 - SEVERE SEPSIS WITH SEPTIC SHOCK Status: Acute Current Visit: Yes (3) Acute kidney injury SNOMED Code(s): 72936323, 56252946 ICD Code: N17.9 - ACUTE KIDNEY FAILURE, UNSPECIFIED Status: Acute Current Visit: Yes (4) Diabetes mellitus type 2 in obese SNOMED Code(s): 92835819 ICD Code: E11.69 - TYPE 2 DIABETES MELLITUS WITH OTHER SPECIFIED COMPLICATION; E66.9 - OBESITY, UNSPECIFIED Status: Chronic Current Visit: Yes (5) Essential hypertension SNOMED Code(s): 33772771 ICD Code: I10 - ESSENTIAL (PRIMARY) HYPERTENSION Status: Chronic Current Visit: Yes - Patient Summary/Data Hospital Course: Alexandrea presented initially to an outside hospital with weakness, fever and abdominal pain. Work-up in the outside hospital revealed evidence for right- sided pyelonephritis with sepsis and septic shock even prior to her transfer. She had leukocytosis, evidence for infection on urinalysis as well as a CT scan suggesting pyelonephritis. She developed some hypoxia after volume resuscitation for the sepsis. She required norepinephrine for vasopressor support with persistent hypotension. No beds were available at [facility] so she was transferred here for further management. She was admitted to the intensive care unit. IV antibiotic coverage was with levofloxacin and ceftazidime. She required vasopressor support at the time of presentation but we were able to wean this off over the course of several hours. We did provide some IV fluids along with the persistent hypotension and improvement in her respiratory status from presentation. The next day we saw steady improvement. We are able to stop her IV fluids. She had remained off of the vasopressors. Her cultures from [place] were growing E. coli with final sensitivities pending. We did continue the broad-spectrum antibiotics for an additional day. Next day her cultures returned with pansensitive E. coli from blood and urine. She continued to have fevers as well as needed some supplemental oxygen from a persistent volume excess. We diuresed her for a couple of days and continued to the antibiotics that we did switch to ceftriaxone. We are able to wean her off the supplemental oxygen. She has not had any fevers in more than 24 hours. Strength and appetite are good enough that she feels comfortable going home. She is going to go to her son's house for a few days before returning home with her daughter. She will be on antibiotics for another week to complete 10 days o f therapy for right-sided pyelonephritis with septic shock and gram-negative bacteremia. Also of note the patient had acute kidney injury at presentation with a creatinine of 1.7. Creatinine is down to 0.9 at the time of discharge. Diabetes has been well controlled. - Patient Instructions Diet: Diabetic Diet Activity: As Tolerated Showering/Bathing: May Shower Other/Special Instructions: 1. You were in the hospital for management of right- sided pyelonephritis complicated by septic shock. Your cultures grew out a bacteria called E. coli that was sensitive to all of the antibiotics we tested. Your condition has been improving with IV fluids, antibiotics and additional cares provided in the hospital. I do recommend additional antibiotic therapy after hospital discharge. Please take ciprofloxacin 250 mg twice daily for 7 days. Your first dose outside of the hospital will be due tonight around 9 PM. You may increase your activity as tolerated with a goal of returning to normal activity over the next 1 to 2 weeks. 2. Continue your usual home medications as previously prescribed. 3. I have placed a referral to home health care. They will help ease your transition home with nursing care and physical therapy. 4. Follow up with your new primary care as scheduled or sooner if symptoms do not continue to get better or if they get worse. - Discharge Plan *PRESCRIPTION DRUG MONITORING PROGRAM REVIEWED*: Not Applicable *COPY OF PRESCRIPTION DRUG MONITORING REPORT IN PATIENT MADDI: Not Applicable Prescriptions/Med Rec: Ciprofloxacin [Ciprofloxacin HCl] 250 mg PO BID #14 tab Home Medications: Home Meds Aspirin [Halfprin] 81 mg PO DAILY 05/24/21 [History] Calcium Citrate/Vitamin D3 [Calcium Citrate - Vit D3 Tab] 1 tab PO BID 05/24/21 [History] Ibuprofen 400 mg PO DAILY 05/24/21 [History] Insuln Asp Prot/Insulin Aspart [NovoLOG Mix 70-30] 50 units SQ BIDAC 05/24/21 [History] Losartan [Cozaar] 100 mg PO DAILY 05/24/21 [History] Multivitamin 1 each PO DAILY 05/24/21 [History] Omeprazole 20 mg PO DAILY 05/24/21 [History] Sertraline [Zoloft] 100 mg PO DAILY 05/24/21 [History] Simvastatin 20 mg PO BEDTIME 05/24/21 [History] amLODIPine Besylate [Amlodipine Besylate] 10 mg PO DAILY 05/24/21 [History] hydroCHLOROthiazide [Hydrochlorothiazide] 12.5 mg PO DAILY 05/24/21 [History] metFORMIN [Glucophage] 1,000 mg PO BIDMEALS 05/24/21 [History] Ciprofloxacin [Ciprofloxacin HCl] 250 mg PO BID #14 tab 05/27/21 [Rx] Oxygen Therapy Mode: Room Air Patient Handouts: Pyelonephritis, Adult, [id number], Ciprofloxacin tablets Referrals: Clarita Bahena DAIRY TECHNOLOGIST [Ordering Only Provider] - 05/31/21 11:30 am (Please arrive 15 minutes early to register for your appointment.) - Discharge Summary/Plan Comment DC Time >30 min.: Yes Total # of Minutes for Discharge Time: 40 - set up home care - Patient Data Vitals - Most Recent: Last Vital Signs Temp 37.1 C 05/27/21 12:52 Pulse 78 05/27/21 12:52 Resp 18 05/27/21 12:52 BP 131/54 L 05/27/21 12:52 Pulse Ox 94 L 05/27/21 12:52 Weight - Most Recent: 73 kg I&O - Last 24 hours: Intake & Output 05/26/21 05/27/21 05/27/21 22:59 06:59 14:59 Intake Total 840 300 Balance 840 300 Lab Results - Last 24 hrs: Laboratory Results - last 24 hr 05/26/21 05/26/21 05/27/21 Range/Units 16:57 21:11 05:53 WBC 10.1 (4.5-11.0) K/uL RBC 3.79 (3.30-5.50) M/uL Hgb 8.0 L (12.0-15.0) g/dL Hct 26.3 L (36.0-48.0) % MCV 69 L (80-98) fL MCH 21 L (27-31) pg MCHC 30 L (32-36) % Plt Count 249 (150-400) K/uL Sodium (140-148) mmol/L Potassium (3.6-5.2) mmol/L Chloride (100-108) mmol/L Carbon Dioxide (21-32) mmol/L Anion Gap (5.0-14.0) mmol/L BUN (7-18) mg/dL Creatinine (0.6-1.0) mg/dL Est Cr Clr Drug Dosing mL/min Estimated GFR (MDRD) (>60) Glucose (74-106) mg/dL POC Glucose 129 H 118 H (74-106) mg/dL Calcium (8.5-10.1) mg/dL 05/27/21 05/27/21 05/27/21 Range/Units 05:53 07:20 11:32 WBC (4.5-11.0) K/uL RBC (3.30-5.50) M/uL Hgb (12.0-15.0) g/dL Hct (36.0-48.0) % MCV (80-98) fL MCH (27-31) pg MCHC (32-36) % Plt Count (150-400) K/uL Sodium 134 L (140-148) mmol/L Potassium 4.0 (3.6-5.2) mmol/L Chloride 99 L (100-108) mmol/L Carbon Dioxide 28 (21-32) mmol/L Anion Gap 11.0 (5.0-14.0) mmol/L BUN 19 H (7-18) mg/dL Creatinine 0.9 (0.6-1.0) mg/dL Est Cr Clr Drug Dosing 36.41 mL/min Estimated GFR (MDRD) > 60 (>60) Glucose 126 H (74-106) mg/dL POC Glucose 126 H 159 H (74-106) mg/dL Calcium 8.5 (8.5-10.1) mg/dL Med Orders - Current: Current Medications Acetaminophen (Acetaminophen 325 Mg Tab) 650 mg PO Q4H PRN PRN Reason: Pain (Mild 1-3)/fever Last Admin: 05/26/21 13:57 Dose: 650 mg Documented by: Aspirin (Aspirin 81 Mg Tab.Ec) 81 mg PO DAILY [facility] Last Admin: 05/27/21 08:40 Dose: 81 mg Documented by: Atorvastatin Calcium (Atorvastatin 10 Mg Tab) 10 mg PO BEDTIME [facility] Last Admin: 05/26/21 21:34 Dose: 10 mg Documented by: Ceftriaxone Sodium 1 gm/ (Sodium Chloride) 50 mls @ 100 mls/hr IV Q24H [facility] Last Admin: 05/26/21 21:37 Dose: 100 mls/hr Documented by: Ibuprofen (Ibuprofen 600 Mg Tab) 600 mg PO Q8H PRN PRN Reason: Fever Insulin Human Lispro (Insulin Lispro 100 Unit/Ml 3 Ml Kwikpen) 0 unit SUBCUT QIDACANDBED [facility]; Protocol Last Admin: 05/27/21 12:55 Dose: 2 units Documented by: Insulin Lispro Protam/Lispro Human (Insulin Lispro Protamine/Lispro 75-25 100 Units/Ml 10 Ml Vial) 15 unit SUBCUT BIDAC [facility] Last Admin: 05/27/21 08:41 Dose: 15 unit Documented by: Lactobacillus Rhamnosus (Lactobacillus Rhamnosus Gg (Probiotic) Cap) 1 cap PO BID [facility] Last Admin: 05/27/21 08:40 Dose: 1 cap Documented by: Lorazepam (Lorazepam 2 Mg/Ml Sdv) 0.5 mg IVPUSH Q4H PRN PRN Reason: Nausea/Vomiting Magnesium Hydroxide (Magnesium Hydroxide 400 Mg/5 Ml Susp 30 Ml Cup) 30 ml PO Q12H PRN PRN Reason: Constipation Melatonin (Melatonin 3 Mg Tab) 9 mg PO BEDTIME [facility] Last Admin: 05/26/21 21:35 Dose: 9 mg Documented by: Ondansetron HCl (Ondansetron 4 Mg Tab.Dis) 4 mg PO Q6H PRN PRN Reason: Nausea able to take PO Last Admin: 05/25/21 00:57 Dose: 4 mg Documented by: Ondansetron HCl (Ondansetron 4 Mg/2 Ml Sdv) 4 mg IV Q6H PRN PRN Reason: Nausea/Vomiting Pantoprazole Sodium (Pantoprazole 40 Mg Tab.Cr) 40 mg PO ACBREAKFAST [facility] Last Admin: 05/27/21 08:40 Dose: 40 mg Documented by: Potassium Chloride (Potassium Chloride 20 Meq Tab.Er) 40 meq PO BID [facility] Last Admin: 05/27/21 08:40 Dose: 40 meq Documented by: Senna/Docusate Sodium (Docusate Sodium/Sennosides 50-8.6 Mg Tab) 1 tab PO BID PRN PRN Reason: Constipation Sertraline HCl (Sertraline 50 Mg Tab) 100 mg PO DAILY [facility] Last Admin: 05/27/21 08:40 Dose: 100 mg Documented by: Discontinued Medications Furosemide (Furosemide 40 Mg/4 Ml Vial) 20 mg IVPUSH ONETIME ONE Stop: 05/25/21 08:01 Last Admin: 05/25/21 07:52 Dose: 20 mg Documented by: Furosemide (Furosemide 40 Mg/4 Ml Vial) 40 mg IVPUSH NOW ONE Stop: 05/26/21 13:31 Last Admin: 05/26/21 13:57 Dose: 40 mg Documented by: Furosemide (Furosemide 40 Mg/4 Ml Vial) 20 mg IVPUSH NOW ONE Stop: 05/27/21 09:01 Last Admin: 05/27/21 08:40 Dose: 20 mg Documented by: Sodium Chloride (Normal Saline) 1,000 mls @ 100 mls/hr IV ASDIRECTED [facility] Last Admin: 05/24/21 18:11 Dose: 100 mls/hr Documented by: Ceftazidime 1 gm/ Sodium (Chloride) 50 mls @ 100 mls/hr IV Q12H [facility] Last Admin: 05/26/21 09:28 Dose: 100 mls/hr Documented by: Levofloxacin/Dextrose 500 mg/ (Premix) 100 mls @ 100 mls/hr IV Q48H [facility] Norepinephrine Bitartrate 4 mg (/ Dextrose/Water) 250 mls @ 7.5 mls/hr IV TITRATE [facility]; Protocol Insulin Lispro Protam/Lispro Human (Insulin Lispro Protamine/Lispro 75-25 100 Units/Ml 10 Ml Vial) 25 unit SUBCUT BIDAC [facility] Last Admin: 05/25/21 07:55 Dose: Not Given Documented by: Potassium Chloride (Potassium Chloride 20 Meq Tab.Er) 40 meq PO ONETIME ONE Stop: 05/26/21 08:31 Last Admin: 05/26/21 09:33 Dose: 40 meq Documented by:
== END 2021-05-27 13:50 | disposition home health service (06) | DRG 871 ==
LOC: JP.ICU 07:27 → JP.MS 14:57
PROVIDERS: ADMIT Internal Medicine; ATTEND Internal Medicine
PROC: 3E033XZ Introduction of Vasopressor into Peripheral Vein, Percutaneous Approach (ICD-10-PCS; principal; 2021-05-24)
DX: A41.51 Sepsis due to Escherichia coli [E. coli] (principal); R65.21 Severe sepsis with septic shock; N10 Acute pyelonephritis; N17.9 Acute kidney failure, unspecified; E11.9 Type 2 diabetes mellitus without complications; I10 Essential (primary) hypertension; Z79.82 Long term (current) use of aspirin; Z79.899 Other long term (current) drug therapy; Z79.4 Long term (current) use of insulin; E78.00 Pure hypercholesterolemia, unspecified; F41.9 Anxiety disorder, unspecified; F32.9 Major depressive disorder, single episode, unspecified; Z98.49 Cataract extraction status, unspecified eye; Z90.710 Acquired absence of both cervix and uterus
CPT/HCPCS: 36415; 80048; 82947; 85027; 94762; A9270-GY; J0696; J0713; J1815; J1940; J7030